=== PATIENT | female | born 1995 | race Two or more races ===

== ENCOUNTER 2021-03-21 12:09 | Day surgery (SDC) | payer OTHER ==
[~2021-03-21] VITALS: Ht 160 cm; Wt 61.2 kg
[~2021-03-21 12:09] MED LIST: PRENATALES
== END 2021-03-21 22:00 | disposition home or self-care (01) ==
LOC: ER 12:09 → SEC-K 12:09 → CIR.AMB 12:09 → EDSTATUS 15:00 → SEC-K 18:43 → O/R 18:43 → CIR.AMB 22:00
PROVIDERS: ATTEND Obstetrics & Gynecology
DX: O02.1 Missed abortion (principal); O36.80X0 Pregnancy with inconclusive fetal viability, not applicable or unspecified; O26.891 Other specified pregnancy related conditions, first trimester; R10.2 Pelvic and perineal pain; Z3A.11 11 weeks gestation of pregnancy

== ENCOUNTER 2022-03-28 22:34 | Emergency (ER) | payer OTHER ==
[~2022-03-28] VITALS: Ht 160 cm; Wt 64.0 kg
[~2022-03-28 22:34] MED LIST changes: +CEPHALEXIN500 MG PO
== END 2022-03-29 03:11 ==
LOC: ER 22:34
DX: O26.92 Pregnancy related conditions, unspecified, second trimester (principal); Z3A.21 21 weeks gestation of pregnancy

== ENCOUNTER 2022-05-20 20:09 | Outpatient (CLI) | payer OTHER | END 2022-05-21 12:18 | disposition home or self-care (01) | LOC: OBS/DEL 20:09 | PROVIDERS: ATTEND Obstetrics & Gynecology | DX: O23.43 Unspecified infection of urinary tract in pregnancy, third trimester (principal); N39.0 Urinary tract infection, site not specified; Z3A.29 29 weeks gestation of pregnancy; Z91.013 Allergy to seafood ==

== ENCOUNTER 2022-08-02 03:26 | Inpatient (IN) | payer OTHER ==
[~2022-08-02] VITALS: Ht 160 cm; Wt 70.3 kg
== END 2022-08-05 15:09 | disposition home or self-care (01) | DRG 788 ==
LOC: LDR 03:26 → O/R 14:35 → OB/GYN 15:30
PROVIDERS: ADMIT Obstetrics & Gynecology; ATTEND Obstetrics & Gynecology
PROC: 4A1HXCZ Monitoring of Products of Conception, Cardiac Rate, External Approach (ICD-10-PCS; 2022-08-02)
PROC: 10D00Z1 Extraction of Products of Conception, Low, Open Approach (ICD-10-PCS; principal; 2022-08-02 14:00)
DX: O33.8 Maternal care for disproportion of other origin (principal); Z3A.39 39 weeks gestation of pregnancy; Z37.0 Single live birth; Z20.822 Contact with and (suspected) exposure to COVID-19

== ENCOUNTER 2024-03-13 11:43 | Emergency (ER) | payer OTHER ==
[~2024-03-13] VITALS: Ht 162.6 cm; Wt 67.1 kg
[2024-03-13 16:02] LABS: HEMATOCRIT 41.9 % (36.0-45.00); HEMOGLOBIN 13.9 g/dL (12.0-15.00); MEAN CELL VOLUME 88.5 fL (80.00-100.00); MEAN CORPUSCULAR HEMOGLOBIN 29.5 pg (27.00-32.0); MEAN CORPUSCULAR HGB CONC 33.3 g/dl (32.0-36.0); PLATELET COUNT 305 K/uL (150-450); RED BLOOD COUNT 4.74 M/uL (4.00-6.00); RED CELL DISTRIBUTION WIDTH 13.2 % (11.5-14.5)
== END 2024-03-13 18:27 | disposition home or self-care (01) ==
LOC: ER 11:45
DX: R10.2 Pelvic and perineal pain (principal); Z91.013 Allergy to seafood